=== PATIENT | male | born 1985 | race Caucasian/White ===

== ENCOUNTER 2018-05-31 10:13 | Emergency (ER) | payer SELFPAY ==
[~2018-05-31] VITALS: Ht 167.6 cm; Wt 64.0 kg
[2018-05-31] MEDS ORDERED: METOCLOPRAMIDE HCL 10MG/2ML VIAL IV ONE (10:45)
[2018-05-31] MEDS ORDERED: FOLIC ACID 1 MG, THIAMINE HCL 100 MG, MVI, ADULT NO.1 10 ML in DEXTROSE 5% WATER 1,000 ML IV ONE ×4 (10:45)
[2018-05-31 11:28] LABS: BASOPHILS % 0.1 % (0.0-2.0); EOSINOPHILS % 0.1 % (0.0-5.0); HEMATOCRIT. 35.2 % (42.0-52.0); HEMOGLOBIN. 11.7 g/dL (14.0-18.0); LYMPHOCYTES % 10.2 % (20.0-50.0); MEAN CORPUSCULAR HEMOGLOBIN 26.2 pg (28.0-32.0); MEAN CORPUSCULAR VOLUME 79.3 fL (80.0-94.0); MEAN PLATELET VOLUME 7.7 fl (7.4-10.4); MONOCYTES % 3.9 % (2.0-8.0); NEUTROPHILS % 85.7 % (40.0-76.0); PLATELET 190 x1000/uL (130-400); RED BLOOD CELL COUNT 4.44 mill/uL (4.7-6.1)
[2018-05-31 11:29] LABS: CHLORIDE 95 mEq/L (98-107)
[2018-05-31 12:11] LABS: PLATELET ESTIMATE NORMAL
[2018-05-31 12:12] LABS: ETHANOL BLOOD 384 mg/dL
[2018-05-31 17:58] VITALS: BP 123/80
== END 2018-05-31 18:03 | disposition home or self-care (01) ==
LOC: ER 10:13
DX: F10.20 Alcohol dependence, uncomplicated (principal)
CPT/HCPCS: 36415; 80053; 83690; 85025; 96365; 96366; 96375; 99285; G0482; J2765; J3411; J3490; J7070; Z7610